=== PATIENT | male | born 1975 | race Caucasian/White ===

== ENCOUNTER → 2019-11-23 | Outpatient (CLI) | payer OTHER ==
[~2019-11-23] MED LIST: PROZAC 20MG20 MG PO
== END ==
LOC: COL.RAD
DX: R68.81 Early satiety (principal)
CPT/HCPCS: A9541

== ENCOUNTER → 2019-12-14 | Outpatient (CLI) | payer OTHER | LOC: COL.RAD 10:20 | DX: K21.9 Gastro-esophageal reflux disease without esophagitis (principal) ==

== ENCOUNTER → 2020-08-01 | Outpatient (CLI) | payer OTHER ==
[~2020-08-01] MED LIST changes: +ATARAX 25MG25 MG/TAB PO; +CYMBALTA 30MG30 MG PO; +DESYREL 100MG100 MG PO; +ULTRAM 50MG TAB50 MG PO
== END ==
LOC: COL.RAD
DX: K21.9 Gastro-esophageal reflux disease without esophagitis (principal); K44.9 Diaphragmatic hernia without obstruction or gangrene
CPT/HCPCS: A9541

== ENCOUNTER 2020-08-09 05:59 | Day surgery (SDC) | payer OTHER ==
[2020-08-09] VITALS (11 sets, daily range): BP systolic 99–123; BP diastolic 61–80; PULSE 61–88; TEMP 97.8–98.2
[~2020-08-09] VITALS: Ht 175.3 cm; Wt 94.8 kg
[~2020-08-09 05:59] MED LIST changes: -ATARAX 25MG25 MG/TAB PO; -CYMBALTA 30MG30 MG PO; -DESYREL 100MG100 MG PO; -ULTRAM 50MG TAB50 MG PO
[2020-08-09] MEDS ORDERED: ATARAX 25MG25 MG/TAB PO (06:11)
[2020-08-09] MEDS ORDERED: DESYREL 100MG100 MG PO (06:12)
[2020-08-09] MEDS ORDERED: CYMBALTA 30MG30 MG PO (06:12)
--- NOTE | 2020-08-09 09:51 | NUR ---
Patient up from OR. Drowsy but arouses to voice and touch. Lap x6 with edges well approximated. Patient denies pain at this time. SCDs to BLE. Patient denies further needs at this time. Post op fluids infusing at this time. Post op VSS.
--- NOTE | 2020-08-09 10:55 | NUR ---
Patient states pain 7/10 to abdomen, medications given at this time. Spouse at bedside. Educated patient on diet; no straws/carbonation. No further needs at this time.
--- NOTE | 2020-08-09 12:45 | NUR ---
Patient up ambulating in halls with SBA, steady gait. Ambulated >200 ft.
--- NOTE | 2020-08-09 18:52 | NUR ---
Patient doing well this afternoon. Has been up ambulaing independently. Denies pain at this time. Will report off to awake overnight counselor.
--- NOTE | 2020-08-09 20:30 | NUR ---
Pt. sitting up in bed. Pt. is A&OX3, assessment complete. INT to lt. hand patent. Pt. reports abd. pain at a 5 on pain scale at this time. Gave pain meds per orders. Abd. incisions x6 CDI. Pt. denies further needs. Call light within reach.
[2020-08-10 00:18] VITALS: BP 120/62; PULSE 76; TEMP 98.3
[2020-08-10 03:54] VITALS: BP 113/64; PULSE 71; TEMP 98.1
[2020-08-10 07:21] VITALS: BP 98/66; PULSE 71; TEMP 99.4
--- NOTE | 2020-08-10 09:12 | NUR ---
DARRELL met with the patient to discuss discharge plan. The patient lives in [place] with his , Amberly (ph#[phone]). He reports independence with ADLs and does not have any DME. The patient states that he will have a new provider at the [facility] on [address]. He does not know their name. He receives his medications on [address]. The patient does not have a DPOA-HC and he was not interested in completing one while here. The patient plans to return home with his upon discharge. No additional needs at this time.
--- NOTE | 2020-08-10 10:21 | NUR ---
Patient resting in bed. He reports being tired. Not sleeping well. We reviewed diet. He is tolerating clears, denies nausea. Activity encouraged. Int. Lap sites open to air, CDI.
--- NOTE | 2020-08-10 10:34 | NUR ---
Initial visit; Patient thanked Curriculum Coordinator for informing him of the availability of spiritual care at [facility] and offering him God's blessings.
[2020-08-10] MEDS ORDERED: ULTRAM 50MG TAB50 MG PO (10:45)
--- NOTE | 2020-08-10 11:29 | NUR ---
Patient ready for discharge. His here to take him home. Int Dc. We discussed all discharge paperwork. He denies questions or concerns. follow up appt reviewed. We reviewed incision cares. Strict diet restrictions reviewed. script for ultram send with patient & medication safety and home med list reviewed. Patient wheeled out with all belongings. His taking him home.
== END 2020-08-10 11:36 | disposition home or self-care (01) ==
LOC: SDCO → JCC 05:59 → SDCO 07:30 → JCC 09:48 → SDCO 08-10 11:36
DX: K21.00 Gastro-esophageal reflux disease with esophagitis, without bleeding (principal); F41.9 Anxiety disorder, unspecified; F32.9 Major depressive disorder, single episode, unspecified; G47.33 Obstructive sleep apnea (adult) (pediatric); F43.10 Post-traumatic stress disorder, unspecified; Z20.822 Contact with and (suspected) exposure to COVID-19; Z80.42 Family history of malignant neoplasm of prostate; Z79.899 Other long term (current) drug therapy
CPT/HCPCS: OP; C1781; J0330; J1100; J1885; J2250; J2405; J2704; J3010; J7120